=== PATIENT | female | born 1980 | race Caucasian/White ===

== ENCOUNTER 2024-10-07 02:27 | Emergency (ER) | payer BC, OTHER | END 2024-10-07 03:02 | disposition home or self-care (01) | LOC: NAV ERS 02:27 | DX: R00.2 Palpitations (principal); F41.9 Anxiety disorder, unspecified; I10 Essential (primary) hypertension; E03.9 Hypothyroidism, unspecified; Z79.899 Other long term (current) drug therapy | CPT/HCPCS: 99284 ==